=== PATIENT | male | born 1955 | race Caucasian/White ===

== ENCOUNTER 2016-12-04 10:16 | Inpatient (IN) | payer OTHER ==
[2016-11-12 12:52] VITALS: BMI 41.0
--- NOTE | 2016-11-12 13:21 | PAT Medication Instructions ---
Service Date Nov 12, 2016. Current Home Medication List Aspirin (Aspirin Ec), 81 MG PO QAM Cetirizine (Zyrtec), 10 MG PO QAM Fish Oil (Victor-3), 1 CAP PO QAM Fluticasone Propionate (Nasal) (Flonase Allergy Relief), 1 SPRAY JONATHAN QDAY PRN for Nasal Congestion Ibuprofen (Advil), 200-600 MG PO Q4H Magnesium Chloride (Slow-Mag Tab), Unknown Dose PO QAM Multiple Vitamin (Multi Vitamin), 1 TAB PO QAM Potassium Chloride (Klor-Con Ext Rel), Unknown Dose PO QAM Saccharomyces Boulardii (Probiotic), Unknown Dose PO QAM Vitamin E (Vitamin E 100 Iu), Unknown Dose PO EVERY OTHER DAY Medication Instructions For Your Scheduled Surgery - Hold the following medications 2 weeks prior to surgery: Vitamin E (Vitamin E 100 Iu), Unknown Dose PO EVERY OTHER DAY Fish Oil (Victor-3), 1 CAP PO QAM - Hold the following medications 7 days prior to surgery per surgeon's instructions: Ibuprofen (Advil), 200-600 MG PO Q4H - Hold the following medications the morning of surgery: Magnesium Chloride (Slow-Mag Tab), Unknown Dose PO QAM Multiple Vitamin (Multi Vitamin), 1 TAB PO QAM Potassium Chloride (Klor-Con Ext Rel), Unknown Dose PO QAM Saccharomyces Boulardii (Probiotic), Unknown Dose PO QAM Cetirizine (Zyrtec), 10 MG PO QAM - Take the following medications the morning of surgery with a sip of water OTHERWISE NOTHING TO EAT OR DRINK AFTER MIDNIGHT: Aspirin (Aspirin Ec), 81 MG PO QAM Fluticasone Propionate (Nasal) (Flonase Allergy Relief), 1 SPRAY JONATHAN QDAY PRN for Nasal Congestion If you have any questions please call us at [phone] (Jessie Li PA-C) or [phone] or [phone]
[2016-11-12 14:36] LABS: BASO % 0.1 %; BASO ABS # 0.01 K/uL (0-0.2); COMPLETE YES; EOS % 2.1 %; HEMATOCRIT 42.1 % (42-52); IG% 0.1 %; LYMPH % 33.8 %; MEAN CELL VOLUME 88.6 fL (80-100); MEAN CORPUSCULAR HEMOGLOBIN 30.7 pg (25-34); MEAN CORPUSCULAR HGB CONC 34.7 g/dl (32-36); MEAN PLATELET VOLUME 10.6 fL (7.4-10.4); MONO % 6.8 %; NEUT % 57.1 %; PLATELET COUNT 177 K/uL (130-400); RED BLOOD COUNT 4.75 M/uL (4.7-6.1); WHITE BLOOD COUNT 6.81 K/uL (4.8-10.8)
[2016-11-12 14:38] LABS: PARTIAL THROMBOPLASTIN RATIO 1.2; PROTHROMBIN TIME (PATIENT) 10.8 SECONDS (9.0-12.0)
[2016-11-12 14:50] LABS: BUN/CREATININE RATIO 17.9 (10-20); CALCIUM 9.3 mg/dl (8.5-10.1); CREATININE 0.75 mg/dl (0.60-1.40)
[2016-11-12 15:10] LABS: ESTIMATED AVERAGE GLUCOSE 123 mg/dl; HA1C FLAG Normal (Normal)
--- NOTE | 2016-12-03 10:29 | HISTORY & PHYSICAL EXAMINATION ---
DATE OF ADMISSION: 12/04/2016 CHIEF COMPLAINT: Right knee pain. HISTORY OF PRESENT ILLNESS: The patient is a 61-year-old male with known osteoarthritis about his right knee. He has had a history of previous corticosteroid injection. He continues to have ongoing pain and disability with activities of daily living and now desires to proceed with right total knee arthroplasty. PAST MEDICAL HISTORY: Obesity, kidney stones. PAST SURGICAL HISTORY: Lithotripsy, colonoscopy. MEDICATIONS: Ibuprofen daily, baby aspirin daily, vitamins daily. ALLERGIES: No known drug allergies. SOCIAL HISTORY AND REVIEW OF SYSTEMS: Noncontributory. PHYSICAL EXAMINATION: GENERAL: Well-nourished, well-developed, obese male who appears his stated age. HEENT: Normocephalic, atraumatic, extraocular movements intact, oropharynx pink and moist. NECK: Supple without adenopathy. LUNGS: Clear to auscultation bilaterally. HEART: Regular rate and rhythm. ABDOMEN: Soft, nontender, nondistended, obese. EXTREMITIES: The upper extremities are within normal limits. The right knee is neutrally aligned. He complains primarily of medial compartment pain. He has mild crepitus with range of motion. X-RAYS: X-rays were reviewed. He has bone on bone arthritis on the medial compartment. He has mild osteophyte formation about the medial joint line. He has mild to moderate degenerative change about the patellofemoral joint with osteophyte formation as well. ASSESSMENT: Right knee degenerative joint disease. PLAN: Risks versus benefits discussed. Consent was obtained. The patient's primary care physician is Jimmie Crisostomo PA-C, from [facility]. Will proceed with right total knee arthroplasty upon preoperative workup and medical clearance.
[2016-12-04] VITALS (8 sets, daily range): BP systolic 115–152; BP diastolic 71–96; PULSE 78–93; TEMP 36.3–36.8; O2SAT 93–98; Ht 175.3 cm; Wt 127.4 kg
[~2016-12-04] VITALS: Ht 175.3 cm; Wt 127.4 kg
[2016-12-04] MEDS: TRANEXAMIC ACID INJ 1,000 MG in SODIUM CHLORIDE 0.9% 100ML 100 ML IV SCH ×2 (06:30→11:45)
[~2016-12-04 10:16] MED LIST: ACETAMINOPHEN 500 MG TAB PO SCH; ASPI81TA28 PO; BUPIVACAINE 0.5 % 5 MG/1 ML PF 10ML VIAL ONE; BUPIVACAINE/EPINEPHRINE 0.25% 1:200,000 30 ML VIAL ONE; CEFAZOLIN 3000 MG/65 ML D5W 65 ML IV SCH; CETI10TA84 PO; CeleBREX 200 MG CAP PO SCH; DEXAMETHASONE 4 MG TAB PO SCH; DEXAMETHASONE SOD INJ 4 MG/ML VIAL ONE; FAMOTIDINE 20 MG TAB PO SCH; FLUT0.15 NAE; GABAPENTIN 300 MG CAP PO SCH; IBUP-1050 PO; LACTATED RINGER'S 1000ML 1,000 ML IV SCH; LACTATED RINGER'S 1000ML 500 ML IV ONE; MAGNTAB4 PO; METOCLOPRAMIDE HCL 10 MG TAB PO SCH; MULT-1027 PO; OMEG10007 PO; POTA8CAP6 PO; ROPIVACAINE 5MG/ML 30 ML 150 MG, BUPIVACAINE/EPINEPHR 0.5% MPF 30 ML, KETOROLAC TROMETH... INFIL SCH; SACC250C11 PO; VITA100C2 PO
--- NOTE | 2016-12-04 11:07 | History & Physical Bridge Note ---
H&P Re-Evaluation Bridge Note: I have examined the patient, reviewed the History & Physical and in the interval since the performance of the History & Physical I have noted the following changes of clinical significance: No changes noted
[2016-12-04] MEDS ORDERED: FENTANYL CITRATE INJ 50 MCG/1 ML 2 ML VIAL ONE (11:13)
[2016-12-04] MEDS ORDERED: MIDAZOLAM HCL 1 MG/ML 2ML VIAL ONE (11:13)
[2016-12-04] MEDS ORDERED: ORTHO JOINT ANESTHETIC ONE (12:22)
[2016-12-04] MEDS ORDERED: ONDANSETRON INJ 2 MG/ML 2 ML VIAL IV PRN ×2 (12:45→14:00)
[2016-12-04] MEDS ORDERED: EpHEDrine SULFATE INJ 50 MG/ML AMP IV PRN (12:45)
[2016-12-04] MEDS ORDERED: LIDOCAINE HCL 2% 2 ML VIAL (20MG/ML) ONE (12:45)
[2016-12-04] MEDS ORDERED: FENTANYL CITRATE INJ 50 MCG/1 ML 2 ML VIAL IV PRN (12:45)
[2016-12-04] MEDS ORDERED: ATROPINE SULFATE 0.1 MG/ML 5ML SYR IV PRN (12:45)
[2016-12-04] MEDS ORDERED: PROPOFOL IV EMULSION 10 MG/ML 20 ML VIAL IV ONE (12:45)
--- NOTE | 2016-12-04 13:26 | [facility] Post Operative Brief Note ---
Immediate Operative Summary Operative Date Dec 04, 2016. Pre-Operative Diagnosis rIGHT KNEE DEGENERATIVE JOINT DISEASE Post-Operative Diagnosis Same as preoperative diagnosis Procedure(s) Performed Right total knee arthroplasty Surgeon Dr Beth Title Checker Surgeon(s) Jose Townsend PA-C Estimated Blood Loss 20cc Disposition Recovery Room / PACU
--- NOTE | 2016-12-04 13:28 | [facility] Post Operative Brief Note ---
Immediate Operative Summary Operative Date Dec 04, 2016. Pre-Operative Diagnosis rIGHT KNEE DEGENERATIVE JOINT DISEASE Post-Operative Diagnosis Same as preoperative diagnosis Procedure(s) Performed Right total knee arthroplasty Surgeon Dr Beth Bulk Plant Manager Surgeon(s) Jose Townsend PA-C Estimated Blood Loss 20cc Findings severe oa Specimens oa Disposition Recovery Room / PACU
[2016-12-04] MEDS ORDERED: BACITRACIN 50000 UNIT VIAL IR ONE (13:51)
[2016-12-04] MEDS ORDERED: POVIDONE-IODINE OP SOLN 30 ML BTL TOP ONE (13:51)
[2016-12-04] MEDS ORDERED: BISACODYL 10 MG SUPP PR PRN (14:00)
[2016-12-04] MEDS ORDERED: ALUMINUM/MAGNESIUM/SIMETH (MAALOX MAX) 30 ML UDC PO PRN (14:00)
[2016-12-04] MEDS ORDERED: FLUTICASONE PROPIONATE NA SPR 16 GM BTL NAE PRN (14:00)
[2016-12-04] MEDS ORDERED: MoRPHine SULFATE 2 MG/ML CARP IV PRN (14:00)
[2016-12-04] MEDS ORDERED: OXYCODONE HCL IR 5 MG TAB (IMMEDIATE RELEASE) PO PRN (14:00)
[2016-12-04] MEDS ORDERED: DiphenhydrAMINE HCL 50 MG/ML VIAL IV PRN (14:00)
[2016-12-04] MEDS ORDERED: MAGNESIUM HYDROXIDE SUSP 30 ML UDC PO PRN (14:00)
[2016-12-04] MEDS ORDERED: ZOLPIDEM TARTRATE 5 MG TAB PO PRN (14:00)
[2016-12-04] MEDS ORDERED: MoRPHine SULFATE 10 MG/ML CARP/VIAL IV PRN (14:30)
[2016-12-04] MEDS ORDERED: MoRPHine SULFATE 4 MG/ML 1 ML CARP\\VIAL IV PRN (14:30)
--- NOTE | 2016-12-04 14:44 | DIAGNOSTIC IMAGING REPORT ---
RIGHT KNEE 1 OR 2 VIEWS ROUTINE CLINICAL HISTORY: AP/LATERAL IN PACU RIGHT KNEE Right pain COMPARISON: None. DISCUSSION: Postoperative changes consistent with a total right knee replacement. Good contact between prosthetic and underlying bone. Surgical drains in position. Expected soft tissue postoperative change. IMPRESSION: Postoperative total right knee replacement Electronically signed by: Gregorio Blue M.D. 12/04/2016 2:43 PM Dictated Date/Time: 12/04/2016 2:42 PM
--- NOTE | 2016-12-04 14:45 | OPERATIVE REPORT ---
DATE OF OPERATION: 12/04/2016 PREOPERATIVE DIAGNOSIS: Osteoarthritis right knee. POSTOPERATIVE DIAGNOSIS: Osteoarthritis right knee. PROCEDURE: Right total knee arthroplasty. SURGEON: Dr. Beth. HOME COMPANION: Jose Townsend PA-C. ANESTHESIA: Spinal. COMPLICATIONS: None. OPERATION AND FINDINGS: Following induction of spinal anesthesia, the patient's right leg was prepped and draped in the usual sterile manner. Limb was exsanguinated with an Esmarch bandage and tourniquet was inflated to 350 mmHg. A longitudinal incision was made anteriorly. Subcutaneous tissue was sharply dissected. Electrocautery was used for hemostasis. Prepatellar bursa was incised and median parapatellar incision was performed. Patella was everted and the knee was flexed. Fat pad was removed to aid in visualization and the anterior and posterior cruciate ligaments were removed. The medial face of the tibia was cleared of soft tissue first with a Bovie and a Moon elevator. This tissue was retracted posteriorly using a blunt Hohmann. A Calderon retractor was used to expose the synovium above on the anterior aspect of the femur and this was removed down to bone. The PSI guide was placed on the distal femur and two pins were placed anteriorly and kept in position and two additional pins were placed distally and removed. The distal femoral cutting block was placed in position and the distal femoral cut was used in the +0 setting. Next, the cutting block was removed and the femoral size 4 block was placed in the distal end of the femur. Care was taken to ensure appropriate external rotation and feeler gauge was used to ensure no notching would occur. The femoral block was centered on the distal femur and in the medial and lateral direction and was fixed using two bone screws. The gold pins were then removed. The oscillating saw was used to create the bone cuts and the distal femoral cutting block was removed and the reciprocating saw was used to further trim the femoral cuts as well as a deep in the area for the trochlear groove. Next, posterior condyle remnants were removed. Following this, a meniscal clamp and knife were utilized to remove the anterior portion of both medial and lateral meniscus. The proximal tibia PSI guide was placed into position and the proximal tibial cutting guide was screwed into position. The extra medullary alignment guide was utilized to ensure appropriate alignment. The proximal tibia was cut and the proximal tibial cutting block was removed and this bone fragment was removed. The appropriate guide was used to perform the notch cut on the distal femur and a lamina camp coordinator and a cochlear knife were utilized to finish both medial and lateral meniscectomies to remove any remnants of the posterior or anterior cruciate ligaments. Following this, the distal femoral component was impacted into position and blunt Erin was used to sublux the tibia anteriorly. The proximal tibia was sized and a size 4 tibial tray was chosen as the size to be used. This was put into position and appropriate external rotation and a double check with extramedullary alignment guide was performed. The canal for the tibial stem was prepared first with a 17 mm drill and then the punch and a mallet and the trial tibial poly was placed. A poly 16 was chosen the size to be used. It was brought to extension and the patella was prepared with the patellar reamer. A patella 36 component was chosen the size to be used. The trial component was placed and knee was taken through a full range of motion and there was found to be no lateral subluxation of the tibia. No lateral release was required. The trials were all removed. The final components were obtained and assembled. Cement was mixed. The knee was thoroughly irrigated and the ortho mix was injected about the knee joint. The final components were cemented into position. After thoroughly suctioning and drying the bone ends, all excess cement was removed. The knee was held in extension while the cement hardened. The wound was irrigated and closed over a Hemovac drain. #1 Vicryl was used to close the extensor mechanism. Subcutaneous tissues closed using 0 Dexon. Skin was closed with anahi. Sterile dressing of Adaptic, 4 x 4's, sterile Webril, and Iván was applied. The patient tolerated the procedure well. Due to the complex nature of the procedure, the entire surgery was performed with the operational assistance of Jose Townsend PA-C. The compounding assistant, under direct supervision, was involved in the actual performance of all aspects of the surgical procedure including hemostasis, tissue retraction and incision, instrument management, patient positioning, and wound closure. I attest to the content of the Intraoperative Record and any orders documented therein. Any exceptions are noted below. JUANY
--- NOTE | 2016-12-04 15:05 | Anesthesiology Progress Note ---
Anesthesia Post Op Note Date & Time Dec 04, 2016 at 15:04 Vital Signs Pain Intensity: 0 Vital Signs Past 12 Hours Date Time Temp Pulse Resp B/P Pulse Ox O2 Delivery O2 Flow Rate FiO2 12/04/16 14:50 88 16 12/04/16 14:50 87 16 92 12/04/16 14:49 36.3 12/04/16 14:48 116/69 12/04/16 14:45 88 16 92 12/04/16 14:45 88 16 12/04/16 14:43 108/65 12/04/16 14:40 90 15 95 12/04/16 14:40 90 15 12/04/16 14:39 89 16 95 12/04/16 14:39 90 16 12/04/16 14:38 123/71 12/04/16 14:34 90 16 12/04/16 14:34 89 16 97 12/04/16 14:33 109/67 12/04/16 14:29 90 14 12/04/16 14:29 89 14 97 12/04/16 14:28 105/71 12/04/16 14:24 90 27 98 12/04/16 14:24 90 27 12/04/16 14:23 112/64 12/04/16 14:19 93 14 12/04/16 14:19 93 14 97 12/04/16 14:18 107/72 12/04/16 14:14 93 19 12/04/16 14:14 94 19 98 12/04/16 14:13 96/57 12/04/16 14:09 92 14 99 12/04/16 14:09 92 14 12/04/16 14:08 117/69 12/04/16 14:04 94 21 100 12/04/16 14:04 93 21 12/04/16 14:03 113/66 12/04/16 13:59 94 18 100 12/04/16 13:59 94 18 12/04/16 13:58 114/66 12/04/16 13:54 94 18 99 12/04/16 13:54 36.4 97 16 99/53 98 Mask 10 12/04/16 13:54 94 18 12/04/16 10:38 36.5 78 18 134/96 Room Air 96 Notes Mental Status: alert / awake / arousable, participated in evaluation Pt Amnestic to Procedure: Yes Nausea / Vomiting: adequately controlled Pain: adequately controlled Airway Patency, RR, SpO2: stable & adequate BP & HR: stable & adequate Hydration State: stable & adequate Neuraxial Anesthesia: was administered, sensory block is resolving Anesthetic Complications: no major complications apparent
[2016-12-04] MEDS: D5W AND 1/2NSS + 20MEQ KCL 1,000 ML IV SCH (16:48)
[2016-12-04] MEDS: FERROUS GLUCONATE 324 MG TAB PO SCH (18:06)
[2016-12-04] MEDS: KETOROLAC TROMETHAMINE 30 MG/ML VIAL IV. SCH ×2 (18:07→23:55)
[2016-12-04] MEDS: CEFAZOLIN IV 2,000 MG in DEXTROSE 5% 50ML 50 ML IV SCH (19:47)
[2016-12-04] MEDS: DOCUSATE SODIUM 100 MG CAP PO SCH (21:12)
[2016-12-04] MEDS: OXYCODONE HCL 10 MG TABCR (OXYCONTIN) PO SCH (21:12)
[2016-12-04] MEDS: SENNA 8.6 MG TAB PO SCH (21:13)
[2016-12-04] MEDS: ASPIRIN 81 MG ECTAB PO SCH (21:13)
[2016-12-04] MEDS: ACETAMINOPHEN 500 MG TAB PO SCH (21:14)
[2016-12-05] VITALS (8 sets, daily range): BP systolic 104–142; BP diastolic 62–74; PULSE 62–84; TEMP 36.3–36.8; O2SAT 97–98
[2016-12-05] MEDS: D5W AND 1/2NSS + 20MEQ KCL 1,000 ML IV SCH (03:02)
[2016-12-05] MEDS: ACETAMINOPHEN 500 MG TAB PO SCH ×3 (05:42→20:59)
[2016-12-05 05:43] LABS: HEMATOCRIT 35.3 % (42-52); MEAN CELL VOLUME 88.7 fL (80-100); MEAN CORPUSCULAR HEMOGLOBIN 30.4 pg (25-34); MEAN CORPUSCULAR HGB CONC 34.3 g/dl (32-36); MEAN PLATELET VOLUME 10.2 fL (7.4-10.4); PLATELET COUNT 171 K/uL (130-400); RED BLOOD COUNT 3.98 M/uL (4.7-6.1); WHITE BLOOD COUNT 13.33 K/uL (4.8-10.8)
[2016-12-05] MEDS: KETOROLAC TROMETHAMINE 30 MG/ML VIAL IV. SCH ×2 (05:43→11:56)
[2016-12-05] MEDS: CEFAZOLIN IV 2,000 MG in DEXTROSE 5% 50ML 50 ML IV SCH (05:43)
[2016-12-05 06:14] LABS: BUN/CREATININE RATIO 18.9 (10-20); CALCIUM 8.3 mg/dl (8.5-10.1); CREATININE 0.83 mg/dl (0.60-1.40); POTASSIUM 4.2 mmol/L (3.5-5.1)
--- NOTE | 2016-12-05 07:41 | Orthopedic Progress Note ---
Orthopedic Progress Note Date of Service Dec 05, 2016. Subjective Post OP Day: 1 Reports: feeling well Objective N/V intact, dressing C/D/I (Hemovac in place), toes mobile Date Time Temp Pulse Resp B/P Pulse Ox O2 Delivery O2 Flow Rate FiO2 12/05/16 07:37 97 Room Air 12/05/16 03:40 36.6 74 16 104/68 97 Room Air 12/04/16 23:50 Room Air 12/04/16 23:03 36.7 93 16 146/89 94 Room Air 12/04/16 19:30 93 Room Air 12/04/16 18:30 36.8 89 18 124/83 96 Nasal Cannula 2.0 12/04/16 17:29 36.4 83 18 152/91 98 Nasal Cannula 2.0 12/04/16 16:30 36.6 78 18 147/89 97 Nasal Cannula 2.0 12/04/16 16:00 36.3 80 18 144/78 97 Nasal Cannula 2.0 12/04/16 15:30 96 Nasal Cannula 2.0 12/04/16 15:30 Nasal Cannula 2.0 12/04/16 15:30 36.7 83 18 115/71 96 Nasal Cannula 2.0 12/04/16 15:11 86 17 94 12/04/16 15:11 86 17 12/04/16 15:08 101/71 12/04/16 15:06 92 18 12/04/16 15:06 93 18 96 12/04/16 15:03 123/72 12/04/16 15:01 91 14 96 12/04/16 15:01 90 14 12/04/16 14:58 113/70 12/04/16 14:56 88 13 97 12/04/16 14:56 87 13 12/04/16 14:53 115/75 12/04/16 14:51 94 16 90 12/04/16 14:51 93 16 12/04/16 14:50 88 16 12/04/16 14:50 87 16 92 12/04/16 14:49 36.3 12/04/16 14:48 116/69 12/04/16 14:45 88 16 92 12/04/16 14:45 88 16 12/04/16 14:43 108/65 12/04/16 14:40 90 15 95 12/04/16 14:40 90 15 12/04/16 14:39 89 16 95 12/04/16 14:39 90 16 12/04/16 14:38 123/71 12/04/16 14:34 90 16 12/04/16 14:34 89 16 97 12/04/16 14:33 109/67 12/04/16 14:29 90 14 12/04/16 14:29 89 14 97 12/04/16 14:28 105/71 12/04/16 14:24 90 27 98 12/04/16 14:24 90 27 12/04/16 14:23 112/64 12/04/16 14:19 93 14 12/04/16 14:19 93 14 97 12/04/16 14:18 107/72 12/04/16 14:14 93 19 12/04/16 14:14 94 19 98 12/04/16 14:13 96/57 12/04/16 14:09 92 14 99 12/04/16 14:09 92 14 12/04/16 14:08 117/69 12/04/16 14:04 94 21 100 12/04/16 14:04 93 21 12/04/16 14:03 113/66 12/04/16 13:59 94 18 100 12/04/16 13:59 94 18 12/04/16 13:58 114/66 12/04/16 13:54 94 18 99 12/04/16 13:54 36.4 97 16 99/53 98 Mask 10 12/04/16 13:54 94 18 12/04/16 10:38 36.5 78 18 134/96 Room Air 96 Laboratory Results 24 Hours: Test 12/05/16 05:35 Hematocrit 35.3 % Hemoglobin 12.1 g/dL Assessment & Plan Assessment: 61 yo male stable POD #1 s/p right TKA Plan: 1. Med management 2. DVT prophylaxis- ASA, TEDs, SCDs 3. PT/OT 4. D/C planning- home w/ HH
--- NOTE | 2016-12-05 07:43 | Discharge Instructions ---
Discharge Instructions Admission Reason for Admission: Right Knee Osteoarthritis Discharge Discharge Diagnosis / Problem: Right knee arthritis Discharge Goals Goal(s): Decrease discomfort, Improve function Activity Recommendations Activity Limitations: as noted below Weightbearing Status: Right weightbearing (as tolerated) . Instructions / Follow-Up Instructions / Follow-Up ACTIVITY RECOMMENDATIONS: SELF CARE INSTRUCTIONS AFTER TOTAL KNEE REPLACEMENT A. You may need to continue a physical therapy program after discharge from the hospital. There are several options available to you. Your doctor will assist you in selecting the best one for you. 1. An out-patient facility 2 to 3 times a week for therapy or home therapy. 2. Continue working on all exercises taught to you in the hospital. Your goals should be to increase bending of your knee to 90 degrees and beyond and to fully straighten your knee. B. You may progress at your own pace from walking with a walker or crutches to a cane; then to no assistive devices. C. Make walking a part of your daily routine. Be up as much as comfortable with rest periods throughout the day. Rest with leg elevation is very important. Use the ice wrap frequently for the first 3-4 weeks. D. There are no restrictions on activities. You may ride in a car, shop, participate in livestock trucker and all social activities. E. Wear the long elastic stockings (TIO hose) 20 hours a day for 2 weeks after surgery. They can be removed several times a day for laundering and for a bath. F. You may shower, no tub baths until cleared by your doctor. SPECIAL CARE INSTRUCTIONS: VERY IMPORTANT TO READ AND REVIEW A. There are a few signs you need to watch for after you are home. Call [facility] if you notice any of the followin. Increased severe knee pain. Some pain is expected especially when you exercise. 2. Increased swelling in your leg or knee; pain or swelling of the calf muscle in either lower leg. 3. Any fluid drainage from the incision. 4. Shortness of breath or chest pain. B. Please call [facility] at if you have any concerns or questions about your operation or recovery. The doctor or his nurse will return your call promptly. C. You must take antibiotics before dental work, bladder, bowel or other surgery. Your doctor will provide you with a permanent care to carry describing this precaution. IMPORTANT: * REMEMBER TO TAKE ASPIRIN, 81 MG, TWICE DAILY FOR 4 WEEKS UNLESS OTHERWISE DIRECTED. THIS IS YOUR BLOOD THINNER. * HIGH RISK PATIENTS MAY BE PRESCRIBED A STRONGER BLOOD THINNER. THIS WILL BE PROVIDED AT DISCHARGE. * CALL IF INCREASED PAIN, REDNESS, DRAINAGE OR FEVER GREATER THAT 101. * WEAR TIO HOSE 20 HOURS PER DAY FOR 2 WEEKS. Silverlon- This is a large adhesive bandage that contains silver ions. This helps your incision heal by fighting off bacteria and protecting it from the outside environment. You are permitted to shower with this dressing. This will remain on your incision for 7 days and then should be removed. Some visible blood or drainage through the dressing window is normal. If there is significant drainage or leaking noted before the 7 days notify your doctor's office immediately. Once removed, keep incision clean and dry. If there is any drainage or redness noted, please call your surgeon. FOLLOW UP VISIT: If appointment is not already scheduled: Please call [facility] to make a follow-up appointment for 2 weeks after your surgery at . Current Hospital Diet Patient's current hospital diet: Regular Diet Discharge Diet Recommended Diet: Regular Diet Procedures Procedures Performed: Right total knee arthroplasty Pending Studies Studies pending at discharge: no Laboratory Results Hemoglobin A1c Test 11/12/16 13:26 Range/Units Estimated Average Glucose 123 mg/dl Hemoglobin A1c 5.9 H 4.5-5.6 % Medical Emergencies . Who to Call and When: Medical Emergencies: If at any time you feel your situation is an emergency, please call 911 immediately. . Non-Emergent Contact Non-Emergency issues call your: Surgeon Call Non-Emergent contact if: temperature is above 101.5, your pain is not controlled, wound has increased drainage, wound has increased redness . "Provider Documentation" section prepared by Philippe Khan PA-C. VTE Core Measure Inpt VTE Proph given/why not?: Other Anticoagulation (ASA 81mg bid), T.E.D. Stockings, SCD's
--- NOTE | 2016-12-05 08:01 | Anesthesiology Progress Note ---
Anesthesia Post Op Note Date & Time Dec 05, 2016 at 07:59 Vital Signs Vital Signs Past 12 Hours Date Time Temp Pulse Resp B/P Pulse Ox O2 Delivery O2 Flow Rate FiO2 12/05/16 07:57 36.6 63 16 119/62 97 Room Air 12/05/16 07:37 97 Room Air 12/05/16 03:40 36.6 74 16 104/68 97 Room Air 12/04/16 23:50 Room Air 12/04/16 23:03 36.7 93 16 146/89 94 Room Air Notes Mental Status: alert / awake / arousable, participated in evaluation Pt Amnestic to Procedure: Yes Nausea / Vomiting: adequately controlled Pain: adequately controlled Airway Patency, RR, SpO2: stable & adequate BP & HR: stable & adequate Hydration State: stable & adequate Anesthetic Complications: no major complications apparent
[2016-12-05] MEDS: FERROUS GLUCONATE 324 MG TAB PO SCH ×3 (08:55→17:08)
[2016-12-05] MEDS: ASPIRIN 81 MG ECTAB PO SCH ×2 (08:56→21:00)
[2016-12-05] MEDS: MULTIVITAMIN TAB PO SCH (08:56)
[2016-12-05] MEDS: DOCUSATE SODIUM 100 MG CAP PO SCH ×2 (08:56→21:00)
[2016-12-05] MEDS: CETIRIZINE HCL 10 MG TAB PO SCH (08:56)
[2016-12-05] MEDS: PANTOprazole SOD 40 MG TAB PO SCH (08:56)
[2016-12-05] MEDS: OXYCODONE HCL 10 MG TABCR (OXYCONTIN) PO SCH ×2 (08:56→20:58)
[2016-12-05] MEDS: CeleBREX 200 MG CAP PO SCH (21:00)
[2016-12-05] MEDS: SENNA 8.6 MG TAB PO SCH (21:01)
[2016-12-06] MEDS: ACETAMINOPHEN 500 MG TAB PO SCH (05:31)
[2016-12-06 06:56] VITALS: BP 114/73; PULSE 72; TEMP 36.4; O2SAT 99
[2016-12-06] MEDS: FERROUS GLUCONATE 324 MG TAB PO SCH (08:05)
[2016-12-06] MEDS: ASPIRIN 81 MG ECTAB PO SCH (08:05)
[2016-12-06] MEDS: CeleBREX 200 MG CAP PO SCH (08:05)
[2016-12-06] MEDS: MULTIVITAMIN TAB PO SCH (08:05)
[2016-12-06] MEDS: OXYCODONE HCL 10 MG TABCR (OXYCONTIN) PO SCH (08:05)
[2016-12-06] MEDS: DOCUSATE SODIUM 100 MG CAP PO SCH (08:05)
[2016-12-06] MEDS: PANTOprazole SOD 40 MG TAB PO SCH (08:05)
[2016-12-06] MEDS: CETIRIZINE HCL 10 MG TAB PO SCH (08:05)
--- NOTE | 2016-12-06 08:10 | Orthopedic Progress Note ---
Orthopedic Progress Note Date of Service Dec 06, 2016. Subjective Post OP Day: 2 Reports: feeling well, Denies: SOB, calf pain, chest pain, light headedness, nausea / vomiting Objective calves soft nontender, N/V intact, incision C/D/I, A&O x3, toes mobile Date Time Temp Pulse Resp B/P Pulse Ox O2 Delivery O2 Flow Rate FiO2 12/06/16 06:56 36.4 72 16 114/73 99 Room Air 12/06/16 00:29 Room Air 12/05/16 23:51 36.5 75 14 111/68 98 Room Air 12/05/16 19:15 Room Air 12/05/16 16:11 36.3 73 18 135/74 97 Room Air 12/05/16 12:06 36.8 84 16 142/62 97 Room Air 12/05/16 08:20 97 Room Air Assessment & Plan Assessment: 61 yo male stable POD #2 s/p right TKA Plan: 1. Med management 2. DVT prophylaxis- ASA, TEDs, SCDs 3. PT/OT 4. D/C planning- home w/ HH, DC HOME TODAY Inhouse Planning Pain Management: Celebrex, Oxycontin, PO Tylenol, Oxy IR DVT Prophylaxis: TEDs, SCDs, ASA Discharge Planning Discharge Planning: home with home health
[2016-12-06] MEDS ORDERED: CLB200 PO (09:52)
[2016-12-06] MEDS ORDERED: OXYSR10 PO (09:52)
[2016-12-06] MEDS ORDERED: ASPI81TA28 PO (09:52)
[2016-12-06] MEDS ORDERED: RXC5 PO (09:52)
[2016-12-06] MEDS ORDERED: ACET-1138 PO (09:52)
[2016-12-06] MEDS ORDERED: ONDA8TAB6 PO (09:52)
[2016-12-06 10:26] VITALS: BP 114/73; PULSE 72; TEMP 36.4; O2SAT 99
[2016-12-06 11:15] VITALS: BP 165/87; PULSE 61; TEMP 36.7; O2SAT 98
--- NOTE | 2016-12-11 19:21 | DISCHARGE SUMMARY ---
DISCHARGE DIAGNOSIS: Degenerative joint disease, right knee. SECONDARY DIAGNOSES: Obesity, renal calculi. CONSULTS: None. COMPLICATIONS: None. PROCEDURES: Right total knee arthroplasty performed by Dr. Beth on 12/04/2016. BRIEF HISTORY: As dictated in history and physical. HOSPITAL SUMMARY: The patient was admitted on the above date and had the above-noted surgery performed which he tolerated well. On the first postoperative day, patient was feeling well. Neurovascularly intact. Dressings clean, dry and intact. Toes were mobile. Vital signs were stable. He was afebrile. Hemoglobin was 12.1. He was started on physical therapy protocol and continued on DVT prophylaxis and pain management. By his second postoperative day, he was feeling well and had no complaints. Calves were soft and nontender, neurovascularly intact. Incision was clean, dry and intact. Toes were mobile. Vital signs were stable and he was afebrile. He was progressing with his physical therapy and remaining stable and it was felt he could be discharged to home with home health services. For further review, please see chart. LAB AND X-RAY DATA: As per chart. DISCHARGE INSTRUCTIONS: The patient was discharged to home in satisfactory condition on 12/06/2016 in stable condition. DIET: Regular. ACTIVITY: Weightbearing as tolerated right lower extremity. Follow TKA instruction sheets and special care instructions as noted. Follow up with Dr. Beth in 2 weeks. The patient to call for appointment if one has not been made for you. DISCHARGE MEDICATIONS: Acetaminophen 1000 mg p.o. q. 8 hours, Celebrex 200 mg p.o. b.i.d., Zofran 8 mg p.o. q. 8 hours p.r.n., OxyContin 10 mg p.o. q. 12 hours, oxycodone 5-10 mg p.o. q. 4 hours p.r.n., resume taking Zyrtec 10 mg p.o. q.a.m., fish oil 1 cap p.o. q.a.m., Flonase nasal spray 1 spray nasally daily p.r.n., Slow-Mag p.o. q.a.m., multivitamin 1 tab p.o. q.a.m., potassium chloride strength unknown p.o. q.a.m., probiotic p.o. q.a.m., aspirin 81 mg p.o. b.i.d. for 30 days and after 30 days resume once daily dosing, stop taking ibuprofen.
[2017-06-10] MEDS ORDERED: CYAN100020 PO (11:54)
[2017-06-10] MEDS ORDERED: SACC250C11 PO (11:54)
[2017-06-10] MEDS ORDERED: IBUP-1050 PO (11:54)
[2017-06-10] MEDS ORDERED: ASPI1TAB2 PO (11:54)
[2017-06-10] MEDS ORDERED: [UNRECOGNIZED DRUG - OTHER] PO (11:54)
[2017-06-10] MEDS ORDERED: VTMD1000 PO (11:54)
[2017-06-10] MEDS ORDERED: [UNRECOGNIZED DRUG - CODE] PO (11:54)
== END 2016-12-06 12:50 | disposition home health service (06) | DRG 470 ==
LOC: ENRESERVTM → ENRESERVDT → C.ACU 10:16 → C.3E 11:00 → UNDOADMIN 14:03
PROC: 0SRC0J9 Replacement of Right Knee Joint with Synthetic Substitute, Cemented, Open Approach (ICD-10-PCS; principal; 2016-12-04 12:30)
DX: M17.11 Unilateral primary osteoarthritis, right knee (principal); Z68.41 Body mass index [BMI] 40.0-44.9, adult; Z79.82 Long term (current) use of aspirin; E66.9 Obesity, unspecified

== ENCOUNTER 2017-07-09 07:32 | Inpatient (IN) | payer OTHER ==
[2017-06-10 11:54] VITALS: BMI 41.0
--- NOTE | 2017-06-10 12:23 | PAT Medication Instructions ---
Service Date Jun 10, 2017. Current Home Medication List Aspirin (Juliette Aspirin Ec Low Dose), 1 TAB PO QAM PRN for Pain Cetirizine (Zyrtec), 10 MG PO QAM Cholecalciferol (Vitamin D3), 1 TAB PO QAM Cyanocobalamin (Vitamin B12), 1 TAB PO QAM Fluticasone Propionate (Nasal) (Flonase Allergy Relief), 1 SPRAY JONATHAN QDAY PRN for Nasal Congestion Ibuprofen (Advil), 200-600 MG PO Q4H PRN for Pain Magnesium Chloride (Slow-Mag Tab), Unknown Dose PO QAM Multiple Vitamin (Multi Vitamin), 1 TAB PO QAM Nutritional Supplements (Silica), 1 CAP PO QM Potassium Chloride (Klor-Con Ext Rel), Unknown Dose PO QAM Saccharomyces Boulardii (Probiotic), 1 CAP PO QAM [Zymectrin], 1 CAP PO QAM Medication Instructions For Your Scheduled Surgery - Hold the following medications per surgeon's instructions: Ibuprofen (Advil), 200-600 MG PO Q4H PRN for Pain - Hold the following medications the morning of surgery: Magnesium Chloride (Slow-Mag Tab), Unknown Dose PO QAM Cetirizine (Zyrtec), 10 MG PO QAM Cholecalciferol (Vitamin D3), 1 TAB PO QAM Cyanocobalamin (Vitamin B12), 1 TAB PO QAM Multiple Vitamin (Multi Vitamin), 1 TAB PO QAM Nutritional Supplements (Silica), 1 CAP PO QM Potassium Chloride (Klor-Con Ext Rel), Unknown Dose PO QAM Saccharomyces Boulardii (Probiotic), 1 CAP PO QAM - Take the following medications the morning of surgery with a sip of water OTHERWISE NOTHING TO EAT OR DRINK AFTER MIDNIGHT: Aspirin (Juliette Aspirin Ec Low Dose), 1 TAB PO QAM PRN for Pain Fluticasone Propionate (Nasal) (Flonase Allergy Relief), 1 SPRAY JONATHAN QDAY PRN for Nasal Congestion If you have any questions please call us at [phone] or [phone] or [phone]
[2017-06-10 13:08] LABS: BASO % 0.4 %; BASO ABS # 0.02 K/uL (0-0.2); COMPLETE YES; EOS % 2.5 %; HEMATOCRIT 40.3 % (42-52); IG% 0.4 %; LYMPH % 34.8 %; LYMPH ABS # 1.66 K/uL (1.2-3.4); MEAN CORPUSCULAR HEMOGLOBIN 30.1 pg (25-34); MEAN CORPUSCULAR HGB CONC 34.2 g/dl (32-36); MEAN PLATELET VOLUME 10.5 fL (7.4-10.4); MONO % 8.8 %; NEUT % 53.1 %; PLATELET COUNT 180 K/uL (130-400); RED BLOOD COUNT 4.58 M/uL (4.7-6.1); WHITE BLOOD COUNT 4.77 K/uL (4.8-10.8)
[2017-06-10 13:18] LABS: CALCIUM 8.9 mg/dl (8.5-10.1); CREATININE 0.71 mg/dl (0.60-1.40); POTASSIUM 4.1 mmol/L (3.5-5.1)
[2017-06-10 13:24] LABS: PARTIAL THROMBOPLASTIN RATIO 1.1; PROTHROMBIN TIME (PATIENT) 10.8 SECONDS (9.0-12.0)
[2017-06-10 13:28] LABS: ESTIMATED AVERAGE GLUCOSE 123 mg/dl; HA1C FLAG Normal (Normal); URINE APPEARANCE CLEAR (CLEAR); URINE BILIRUBIN NEG (NEG); URINE COLOR YELLOW; URINE NITRITE NEG (NEG); URINE SPECIFIC GRAVITY 1.012 (1.000-1.030); UROBILINOGEN NEG (NEG); ZZUR CULT IF INDIC CLEAN CATCH NO
[2017-06-10 13:40] LABS: MANUAL MICROSCOPIC REQUIRED? NO; REVIEW REQ? NO
--- NOTE | 2017-07-08 15:56 | HISTORY & PHYSICAL EXAMINATION ---
DATE OF ADMISSION: 07/09/2017 CHIEF COMPLAINT: Left knee pain. HISTORY OF PRESENT ILLNESS: The patient is a 62-year-old male with known osteoarthritis about his left knee. He has had previous corticosteroid as well as viscosupplementation injections without significant relief. He had a previous right total knee arthroplasty approximately 6 months ago with good relief. Due to ongoing pain and disability, he now desires to proceed with left total knee arthroplasty. PAST MEDICAL HISTORY: Kidney stones. PAST SURGICAL HISTORY: Right knee replacement as above. MEDICATIONS: Baby aspirin 81 mg daily, silica daily, multivitamin daily, magnesium supplement, vitamin D, Zyrtec, vitamin B12, potassium, ibuprofen as needed, Tylenol as needed, fish oil, probiotic. ALLERGIES: SEASONAL. SOCIAL HISTORY AND REVIEW OF SYSTEMS: Noncontributory. PHYSICAL EXAMINATION: GENERAL: Well-nourished, well-developed male who appears his stated age. HEENT: Normocephalic, atraumatic, extraocular movements intact, oropharynx pink and moist. NECK: Supple without adenopathy. LUNGS: Clear to auscultation bilaterally. HEART: Regular rate and rhythm. ABDOMEN: Soft, nontender, nondistended, obese. EXTREMITIES: The upper extremity within normal limits. Left knee has a varus alignment. He complains primarily of medial compartment pain. His range of motion is from 0-120 degrees. He has mild crepitus with range of motion. X-RAYS: X-rays were reviewed. He has a varus aligned knee. He has bone on bone arthritis of the medial compartment with osteophyte formation. He also has mild osteophyte formation about the lateral joint line and moderate osteophyte formation about the patellofemoral joint. ASSESSMENT: Left knee degenerative joint disease. PLAN: Risks versus benefits were discussed. Consent was obtained. The patient's primary care physician is Alex Crisostomo PA-C from [place]. Will proceed with left total knee arthroplasty upon preoperative workup and medical clearance.
[~2017-07-09] VITALS: Ht 175.3 cm; Wt 126.9 kg
[2017-07-09] VITALS (8 sets, daily range): BP systolic 109–155; BP diastolic 70–91; PULSE 75–104; TEMP 36.5–37.1; O2SAT 94–97; Ht 175.3 cm; Wt 126.9 kg
[~2017-07-09 07:32] MED LIST changes: +ASPI1TAB2 PO; -ASPI81TA28 PO; -BUPIVACAINE/EPINEPHRINE 0.25% 1:200,000 30 ML VIAL ONE; +CYAN100020 PO; -DEXAMETHASONE SOD INJ 4 MG/ML VIAL ONE; -LACTATED RINGER'S 1000ML 500 ML IV ONE; +LACTATED RINGER'S 1000ML IV SCH; +LACTATED RINGER'S 500 ML IV SCH; +MIDAZOLAM HCL 1 MG/ML 2ML VIAL ONE; -OMEG10007 PO; +ROPIVACAINE 0.5% 5 MG/ML 30 ML VIAL ONE; -VITA100C2 PO; +VTMD1000 PO; +[UNRECOGNIZED DRUG - CODE] PO
[2017-07-09] MEDS ORDERED: POVIDONE-IODINE OP SOLN 30 ML BTL ONE (08:56)
[2017-07-09] MEDS ORDERED: ORTHO JOINT ANESTHETIC ONE (08:56)
[2017-07-09] MEDS ORDERED: BACITRACIN 50000 UNIT VIAL ONE (08:56)
[2017-07-09] MEDS: TRANEXAMIC ACID INJ 1,000 MG in SODIUM CHLORIDE 0.9% 100ML 100 ML IV SCH ×2 (09:12→12:00)
[2017-07-09] MEDS ORDERED: ATROPINE SULFATE 0.1 MG/ML 5ML SYR IV PRN (09:15)
[2017-07-09] MEDS ORDERED: HYDROmorphone INJ 2 MG/ML SYR/VIAL IV PRN (09:15)
[2017-07-09] MEDS ORDERED: EpHEDrine SULFATE INJ 50 MG/ML AMP IV PRN (09:15)
[2017-07-09] MEDS ORDERED: PHENYLEPHRINE 100MCG/ML 5ML SYR IV PRN (09:15)
[2017-07-09] MEDS ORDERED: ONDANSETRON INJ 2 MG/ML 2 ML VIAL IV PRN ×2 (09:15→11:30)
[2017-07-09] MEDS ORDERED: PROPOFOL IV EMULSION 10 MG/ML 20 ML VIAL IV ONE (09:48)
[2017-07-09] MEDS ORDERED: PHENYLEPHRINE 100MCG/ML 5ML SYR ONE (09:48)
[2017-07-09] MEDS ORDERED: FENTANYL CITRATE INJ 50 MCG/1 ML 2 ML VIAL ONE (09:50)
[2017-07-09] MEDS ORDERED: PHENYLEPHRINE HCL INJ 10 MG/ML VIAL ONE (10:51)
--- NOTE | 2017-07-09 10:52 | [facility] Post Operative Brief Note ---
Immediate Operative Summary Operative Date Jul 09, 2017. Pre-Operative Diagnosis Left knee degenerative joint disease Post-Operative Diagnosis same Procedure(s) Performed Left Total Knee Arthroplasty Surgeon Dr. Brady Beth Toolroom Keeper Surgeon(s) Jose Townsend PA-C Estimated Blood Loss 10 ML Findings severe OA Specimens a. left knee bone and tissue Complication(s) None Disposition Recovery Room / PACU
--- NOTE | 2017-07-09 11:22 | OPERATIVE REPORT ---
DATE OF OPERATION: 07/09/2017 PREOPERATIVE DIAGNOSIS: Osteoarthritis, left knee. POSTOPERATIVE DIAGNOSIS: Osteoarthritis, left knee. PROCEDURE: Left total knee arthroplasty. SURGEON: Dr. Beth. HYDRAULIC CORRUGATING MACHINE OPERATOR: ESTHER Stallings ANESTHESIA: Spinal. COMPLICATIONS: None. IMPLANTS USED: Femoral size 5, tibia size 4, tibial poly 16, and patella size 36. OPERATION AND FINDINGS: Following induction of spinal anesthesia, the patient's left leg was prepped and draped in the usual sterile manner. Limb was exsanguinated with an Esmarch bandage and tourniquet was inflated to 350 mmHg. A longitudinal incision was made anteriorly. Subcutaneous tissue was sharply dissected. Electrocautery was used for hemostasis. Prepatellar bursa was incised and median parapatellar incision was performed. Patella was everted and the knee was flexed. Fat pad was removed to aid in visualization and the anterior and posterior cruciate ligaments were removed. The medial face of the tibia was cleared of soft tissue first with a Bovie and a Moon elevator. This tissue was retracted posteriorly using a blunt Hohmann. A Calderon retractor was used to expose the synovium above on the anterior aspect of the femur and this was removed down to bone. The PSI guide was placed on the distal femur and two pins were placed anteriorly and kept in position and two additional pins were placed distally and removed. The distal femoral cutting block was placed in position and the distal femoral cut was used in the +0 setting. Next, the cutting block was removed and the femoral 5 block was placed in the distal end of the femur. Care was taken to ensure appropriate external rotation and feeler gauge was used to ensure no notching would occur. The femoral block was centered on the distal femur and in the medial and lateral direction and was fixed using two bone screws. The gold pins were then removed. The oscillating saw was used to create the bone cuts and the distal femoral cutting block was removed and the reciprocating saw was used to further trim the femoral cuts as well as a deep in the area for the trochlear groove. Next, posterior condyle remnants were removed. Following this, a meniscal clamp and knife were utilized to remove the anterior portion of both medial and lateral meniscus. The proximal tibia PSI guide was placed into position and the proximal tibial cutting guide was screwed into position. The extra medullary alignment guide was utilized to ensure appropriate alignment. The proximal tibia was cut and the proximal tibial cutting block was removed and this bone fragment was removed. The appropriate guide was used to perform the notch cut on the distal femur and a lamina political science instructor and a cochlear knife were utilized to finish both medial and lateral meniscectomies to remove any remnants of the posterior or anterior cruciate ligaments. Following this, the distal femoral component was impacted into position and blunt Erin was used to sublux the tibia anteriorly. The proximal tibia was sized and a 4 tibial tray was chosen as the size to be used. This was put into position and appropriate external rotation and a double check with extramedullary alignment guide was performed. The canal for the tibial stem was prepared first with a 17 mm drill and then the punch and a mallet and the trial tibial poly was placed. A 16 was chosen the size to be used. It was brought to extension and the patella was prepared with the patellar reamer. A 36 component was chosen the size to be used. The trial component was placed and knee was taken through a full range of motion and there was found to be no lateral subluxation of the tibia. No lateral release was required. The trials were all removed. The final components were obtained and assembled. Cement was mixed. The knee was thoroughly irrigated and the ortho mix was injected about the knee joint. The final components were cemented into position. After thoroughly suctioning and drying the bone ends, all excess cement was removed. The knee was held in extension while the cement hardened. The wound was irrigated and closed over a Hemovac drain. #1 Vicryl was used to close the extensor mechanism. Subcutaneous tissues closed using 0 Dexon. Skin was closed with anahi. Sterile dressing of Adaptic, 4 x 4's, sterile Webril, and Iván was applied. The patient tolerated the procedure well. Due to the complex nature of the procedure, the entire surgery was performed with the operational assistance of ESTHER Stallings. The speech language pathology assistant, under direct supervision, was involved in the actual performance of all aspects of the surgical procedure including hemostasis, tissue retraction and incision, instrument management, patient positioning, and wound closure. DISPOSITION: Recovery room stable. I attest to the content of the Intraoperative Record and any orders documented therein. Any exception s are noted below.
[2017-07-09] MEDS ORDERED: MAGNESIUM HYDROXIDE SUSP 30 ML UDC PO PRN (11:30)
[2017-07-09] MEDS ORDERED: BISACODYL 10 MG SUPP PR PRN (11:30)
[2017-07-09] MEDS ORDERED: MoRPHine SULFATE 2 MG/ML CARP IV PRN (11:30)
[2017-07-09] MEDS ORDERED: ALUMINUM/MAGNESIUM/SIMETH (MAALOX MAX) 30 ML UDC PO PRN (11:30)
[2017-07-09] MEDS ORDERED: TAMSULOSIN HCL 0.4 MG CAP PO PRN (11:30)
[2017-07-09] MEDS ORDERED: FLUTICASONE PROPIONATE NA SPR 16 GM BTL NAE PRN (11:30)
[2017-07-09] MEDS ORDERED: MoRPHine SULFATE 4 MG/ML 1 ML CARP\\VIAL IV PRN (11:45)
--- NOTE | 2017-07-09 11:55 | DIAGNOSTIC IMAGING REPORT ---
LEFT KNEE 1 OR 2 VIEWS ROUTINE CLINICAL HISTORY: AP/LATERAL IN PACU LEFT KNEE joint replacement COMPARISON: None. DISCUSSION: Anatomic alignment status post total left knee replacement. Expected soft tissue postoperative change. IMPRESSION: Anatomic alignment status post total joint replacement. The above report was generated using voice recognition software. It may contain grammatical, syntax or spelling errors. Electronically signed by: Gregorio Blue M.D. 07/09/2017 11:53 AM Dictated Date/Time: 07/09/2017 11:53 AM
--- NOTE | 2017-07-09 12:27 | Anesthesiology Progress Note ---
Anesthesia Post Op Note Date & Time Jul 09, 2017 at 12:26 Vital Signs Pain Intensity: 0 Vital Signs Past 12 Hours Date Time Temp Pulse Resp B/P (MAP) Pulse Ox O2 Delivery O2 Flow Rate FiO2 07/09/17 12:20 36.4 91 16 101/72 99 Nasal Cannula 2 07/09/17 12:05 36.4 91 16 116/72 99 Nasal Cannula 2 07/09/17 11:55 91 16 121/69 99 Nasal Cannula 2 07/09/17 11:45 91 16 132/70 100 Oxymask 10 07/09/17 11:35 91 16 105/53 99 Oxymask 10 07/09/17 11:27 36.1 93 16 110/54 97 Oxymask 10 07/09/17 07:55 36.9 85 16 155/91 97 Room Air Notes Mental Status: alert / awake / arousable, participated in evaluation Pt Amnestic to Procedure: Yes Nausea / Vomiting: adequately controlled Pain: adequately controlled Airway Patency, RR, SpO2: stable & adequate BP & HR: stable & adequate Hydration State: stable & adequate Anesthetic Complications: no major complications apparent
[2017-07-09] MEDS: KETOROLAC TROMETHAMINE 30 MG/ML VIAL IV. SCH ×2 (14:13→17:59)
[2017-07-09] MEDS: ACETAMINOPHEN 500 MG TAB PO SCH ×2 (14:13→21:48)
[2017-07-09] MEDS: D5W AND 1/2NSS + 20MEQ KCL 1,000 ML IV SCH (14:20)
[2017-07-09] MEDS: OXYCODONE HCL IR 5 MG TAB (IMMEDIATE RELEASE) PO PRN ×2 (16:06→20:59)
[2017-07-09] MEDS: FERROUS GLUCONATE 324 MG TAB PO SCH (17:54)
[2017-07-09] MEDS: CEFAZOLIN IV 2,000 MG in DEXTROSE 5% 50ML 50 ML IV SCH (17:55)
[2017-07-09] MEDS: OXYCODONE HCL 10 MG TABCR (OXYCONTIN) PO SCH (20:58)
[2017-07-09] MEDS: ASPIRIN 81 MG ECTAB PO SCH (21:00)
[2017-07-09] MEDS: DOCUSATE SODIUM 100 MG CAP PO SCH (21:00)
[2017-07-09] MEDS: SENNA 8.6 MG TAB PO SCH (21:00)
[2017-07-10] MEDS: D5W AND 1/2NSS + 20MEQ KCL 1,000 ML IV SCH (00:39)
[2017-07-10] MEDS: KETOROLAC TROMETHAMINE 30 MG/ML VIAL IV. SCH ×2 (00:47→06:16)
[2017-07-10] MEDS: CEFAZOLIN IV 2,000 MG in DEXTROSE 5% 50ML 50 ML IV SCH (01:43)
[2017-07-10] MEDS: OXYCODONE HCL IR 5 MG TAB (IMMEDIATE RELEASE) PO PRN ×4 (01:47→19:04)
[2017-07-10 03:38] VITALS: BP 106/60; PULSE 90; TEMP 36.5; O2SAT 96
[2017-07-10] MEDS: ACETAMINOPHEN 500 MG TAB PO SCH ×3 (06:16→22:13)
[2017-07-10 06:39] LABS: HEMATOCRIT 35.9 % (42-52); MEAN CELL VOLUME 87.8 fL (80-100); MEAN CORPUSCULAR HEMOGLOBIN 29.6 pg (25-34); MEAN CORPUSCULAR HGB CONC 33.7 g/dl (32-36); MEAN PLATELET VOLUME 10.4 fL (7.4-10.4); PLATELET COUNT 237 K/uL (130-400); RED BLOOD COUNT 4.09 M/uL (4.7-6.1); WHITE BLOOD COUNT 15.39 K/uL (4.8-10.8)
[2017-07-10 07:05] LABS: BUN/CREATININE RATIO 16.1 (10-20); CALCIUM 8.5 mg/dl (8.5-10.1); CREATININE 0.99 mg/dl (0.60-1.40); POTASSIUM 4.3 mmol/L (3.5-5.1)
[2017-07-10 07:08] VITALS: BP 112/72; PULSE 83; TEMP 36.5; O2SAT 95
--- NOTE | 2017-07-10 07:52 | Orthopedic Progress Note ---
Orthopedic Progress Note Date of Service Jul 10, 2017. Subjective Post OP Day: 1 Reports: feeling well Objective N/V intact, dressing C/D/I (Hemovac in place), toes mobile Date Time Temp Pulse Resp B/P (MAP) Pulse Ox O2 Delivery O2 Flow Rate FiO2 07/10/17 07:08 36.5 83 18 112/72 (85) 95 Room Air 07/10/17 03:38 36.5 90 16 106/60 (75) 96 Room Air 07/10/17 00:15 Room Air 07/09/17 22:45 36.8 75 16 109/70 (83) 95 Room Air 07/09/17 15:55 96 Room Air 07/09/17 15:30 37.1 104 18 129/82 (98) 96 Nasal Cannula 2.0 07/09/17 14:44 36.7 92 17 137/89 (105) 96 Nasal Cannula 2.0 07/09/17 13:32 91 16 118/83 (95) 94 Nasal Cannula 2.0 07/09/17 13:11 91 18 124/88 (100) 96 Nasal Cannula 2.0 07/09/17 12:40 Nasal Cannula 2.0 07/09/17 12:40 Nasal Cannula 2.0 07/09/17 12:40 36.5 92 13 130/79 (96) 95 Nasal Cannula 2.0 07/09/17 12:20 36.4 91 16 101/72 99 Nasal Cannula 2 07/09/17 12:05 36.4 91 16 116/72 99 Nasal Cannula 2 07/09/17 11:55 91 16 121/69 99 Nasal Cannula 2 07/09/17 11:45 91 16 132/70 100 Oxymask 10 07/09/17 11:35 91 16 105/53 99 Oxymask 10 07/09/17 11:27 36.1 93 16 110/54 97 Oxymask 10 07/09/17 07:55 36.9 85 16 155/91 97 Room Air Laboratory Results 24 Hours: Test 07/10/17 06:05 Hematocrit 35.9 % Hemoglobin 12.1 g/dL Assessment & Plan Assessment: 62 yo male stable POD #1 s/p left TKA Plan: 1. Med management 2. DVT prophylaxis- ASA, SCDs 3. PT/OT 4. D/C planning- home w/ HH
[2017-07-10] MEDS ORDERED: RXC5 PO (07:53)
[2017-07-10] MEDS ORDERED: OXYSR10 PO (07:53)
--- NOTE | 2017-07-10 08:04 | Anesthesiology Progress Note ---
Anesthesia Post Op Note Date & Time Jul 10, 2017 at 08:03 Vital Signs Pain Intensity: 5.0 Vital Signs Past 12 Hours Date Time Temp Pulse Resp B/P (MAP) Pulse Ox O2 Delivery O2 Flow Rate FiO2 07/10/17 07:59 Room Air 07/10/17 07:08 36.5 83 18 112/72 (85) 95 Room Air 07/10/17 03:38 36.5 90 16 106/60 (75) 96 Room Air 07/10/17 00:15 Room Air 07/09/17 22:45 36.8 75 16 109/70 (83) 95 Room Air Notes Mental Status: alert / awake / arousable, participated in evaluation Pt Amnestic to Procedure: Yes Nausea / Vomiting: adequately controlled Pain: adequately controlled Airway Patency, RR, SpO2: stable & adequate BP & HR: stable & adequate Hydration State: stable & adequate Neuraxial Anesthesia: sensory block resolved Anesthetic Complications: no major complications apparent
[2017-07-10] MEDS: OXYCODONE HCL 10 MG TABCR (OXYCONTIN) PO SCH ×2 (08:42→21:43)
[2017-07-10] MEDS: PANTOprazole SOD 40 MG TAB PO SCH (08:42)
[2017-07-10] MEDS: ASPIRIN 81 MG ECTAB PO SCH ×2 (08:42→22:13)
[2017-07-10] MEDS: FERROUS GLUCONATE 324 MG TAB PO SCH ×3 (08:42→18:28)
[2017-07-10] MEDS: DOCUSATE SODIUM 100 MG CAP PO SCH ×2 (08:42→22:13)
[2017-07-10] MEDS: MULTIVITAMIN TAB PO SCH (08:42)
[2017-07-10] MEDS: CETIRIZINE HCL 10 MG TAB PO SCH (08:43)
[2017-07-10] MEDS: MoRPHine SULFATE 10 MG/ML CARP/VIAL IV PRN ×2 (14:35→20:16)
--- NOTE | 2017-07-10 14:43 | Discharge Instructions ---
Discharge Instructions Date of Service Jul 10, 2017. Admission Reason for Admission: Left Knee Osteoarthritis Discharge Discharge Diagnosis / Problem: Left knee arthritis Discharge Goals Goal(s): Decrease discomfort, Improve function Activity Recommendations Activity Limitations: as noted below Weightbearing Status: Left weightbearing (as tolerated) . Instructions / Follow-Up Instructions / Follow-Up ACTIVITY RECOMMENDATIONS: SELF CARE INSTRUCTIONS AFTER TOTAL KNEE REPLACEMENT A. You may need to continue a physical therapy program after discharge from the hospital. There are several options available to you. Your doctor will assist you in selecting the best one for you. 1. An out-patient facility 2 to 3 times a week for therapy or home therapy. 2. Continue working on all exercises taught to you in the hospital. Your goals should be to increase bending of your knee to 90 degrees and beyond and to fully straighten your knee. B. You may progress at your own pace from walking with a walker or crutches to a cane; then to no assistive devices. C. Make walking a part of your daily routine. Be up as much as comfortable with rest periods throughout the day. Rest with leg elevation is very important. Use the ice wrap frequently for the first 3-4 weeks. D. There are no restrictions on activities. You may ride in a car, shop, participate in station agent and all social activities. E. Wear the long elastic stockings (TIO hose) 20 hours a day for 2 weeks after surgery. They can be removed several times a day for laundering and for a bath. F. You may shower, no tub baths until cleared by your doctor. SPECIAL CARE INSTRUCTIONS: VERY IMPORTANT TO READ AND REVIEW A. There are a few signs you need to watch for after you are home. Call [facility] if you notice any of the followin. Increased severe knee pain. Some pain is expected especially when you exercise. 2. Increased swelling in your leg or knee; pain or swelling of the calf muscle in either lower leg. 3. Any fluid drainage from the incision. 4. Shortness of breath or chest pain. B. Please call [facility] at if you have any concerns or questions about your operation or recovery. The doctor or his nurse will return your call promptly. C. You must take antibiotics before dental work, bladder, bowel or other surgery. Your doctor will provide you with a permanent care to carry describing this precaution. IMPORTANT: * REMEMBER TO TAKE ASPIRIN, 81 MG, TWICE DAILY FOR 4 WEEKS UNLESS OTHERWISE DIRECTED. THIS IS YOUR BLOOD THINNER. * HIGH RISK PATIENTS MAY BE PRESCRIBED A STRONGER BLOOD THINNER. THIS WILL BE PROVIDED AT DISCHARGE. * CALL IF INCREASED PAIN, REDNESS, DRAINAGE OR FEVER GREATER THAT 101. * WEAR TIO HOSE 20 HOURS PER DAY FOR 2 WEEKS. * YOU HAVE A ZIP CLOSURE SYSTEM ON YOUR WOUND INSTEAD OF CHELY. THIS WILL REMAIN ON FOR 14 DAYS. IF BEGINS TO PEEL OFF, PLEASE CALL THE OFFICE. CHANGE YOUR DRESSING DAILY WHILE IT IS STILL DRAINING. ONCE THE DRAINING SUBSIDES OR STOPS, YOU MAY CHANGE THE DRESSING EVERY OTHER DAY. KEEP IT COVERED WITH A DRESSING TO PROTECT THE WOUND AND TO KEEP YOUR CLOTHES FROM CATCHING ON THE ZIP CLOSURE SYSTEM. CALL THE OFFICE IF YOU HAVE INCREASED DRAINAGE, REDNESS OF THE WOUND, OR INCREASED PAIN NOT RELIEVED BY PAIN MEDS. FOLLOW UP VISIT: If appointment is not already scheduled: Please call [facility] to make a follow-up appointment for 2 weeks after your surgery at . Current Hospital Diet Patient's current hospital diet: Regular Diet Discharge Diet Recommended Diet: Regular Diet Procedures Procedures Performed: Left Total Knee Arthroplasty Pending Studies Studies pending at discharge: no Laboratory Results Hemoglobin A1c Test 06/10/17 12:31 Range/Units Estimated Average Glucose 123 mg/dl Hemoglobin A1c 5.9 H 4.5-5.6 % Medical Emergencies . Who to Call and When: Medical Emergencies: If at any time you feel your situation is an emergency, please call 911 immediately. . Non-Emergent Contact Non-Emergency issues call your: Surgeon Call Non-Emergent contact if: temperature is above 101.5, your pain is not controlled, wound has increased drainage, wound has increased redness . "Provider Documentation" section prepared by Philippe Khan PA-C. . VTE Core Measure Inpt VTE Proph given/why not?: Other Anticoagulation (ASA ), T.E.D. Stockings, SCD's [place] Drug Monitoring Program Search Results: patient reviewed within database, no issues identified
[2017-07-10 15:08] VITALS: BP 105/63; PULSE 89; TEMP 36.8; O2SAT 97
[2017-07-10] MEDS ORDERED: SNK PO (16:12)
[2017-07-10] MEDS ORDERED: ASPI1TAB2 PO (16:12)
[2017-07-10] MEDS ORDERED: ACET-24 PO (16:12)
[2017-07-10] MEDS: SENNA 8.6 MG TAB PO SCH (22:13)
[2017-07-10 23:31] VITALS: BP 113/71; PULSE 79; TEMP 36.7; O2SAT 96
[2017-07-11] MEDS: OXYCODONE HCL IR 5 MG TAB (IMMEDIATE RELEASE) PO PRN ×3 (04:18→12:55)
[2017-07-11] MEDS: ACETAMINOPHEN 500 MG TAB PO SCH ×2 (05:43→13:54)
[2017-07-11 06:25] VITALS: BP 125/71; PULSE 74; TEMP 36.7; O2SAT 97
[2017-07-11] MEDS: FERROUS GLUCONATE 324 MG TAB PO SCH ×2 (08:13→12:54)
[2017-07-11] MEDS: OXYCODONE HCL 10 MG TABCR (OXYCONTIN) PO SCH (08:13)
[2017-07-11] MEDS: MULTIVITAMIN TAB PO SCH (08:13)
[2017-07-11] MEDS: DOCUSATE SODIUM 100 MG CAP PO SCH (09:41)
[2017-07-11] MEDS: CETIRIZINE HCL 10 MG TAB PO SCH (09:41)
[2017-07-11] MEDS: ASPIRIN 81 MG ECTAB PO SCH (09:41)
[2017-07-11] MEDS: PANTOprazole SOD 40 MG TAB PO SCH (09:41)
--- NOTE | 2017-07-11 10:47 | Orthopedic Progress Note ---
Orthopedic Progress Note Date of Service Jul 11, 2017. Subjective Post OP Day: 2 Reports: feeling well, Denies: chest pain, SOB, nausea / vomiting, light headedness, calf pain Objective calves soft nontender, N/V intact, dressing C/D/I, A&O x3, toes mobile Date Time Temp Pulse Resp B/P (MAP) Pulse Ox O2 Delivery O2 Flow Rate FiO2 07/11/17 07:30 Room Air 07/11/17 06:25 36.7 74 18 125/71 (89) 97 Room Air 07/11/17 00:30 Room Air 07/10/17 23:31 36.7 79 16 113/71 (85) 96 Room Air 07/10/17 16:30 Room Air 07/10/17 15:08 36.8 89 18 105/63 (77) 97 Room Air Assessment & Plan Assessment: 62 yo male stable POD #2 s/p left TKA Plan: Progressing well Plan for dc to home today Inhouse Planning Pain Management: Oxycontin, Morphine, PO Tylenol, Oxy IR DVT Prophylaxis: TEDs, SCDs, ASA Discharge Planning Discharge Planning: home with home health Pain Management: Oxycontin, PO Tylenol, Oxy IR DVT Prophylaxis: TEDs, ASA Therapy: Physical Therapy
[2017-07-11] MEDS ORDERED: CLB200 PO (10:59)
[2017-07-11] MEDS ORDERED: ONDA8TAB6 PO (10:59)
[2017-07-11 11:19] VITALS: BP 125/71; PULSE 74; TEMP 36.7; O2SAT 97
--- NOTE | 2017-07-12 11:31 | DISCHARGE SUMMARY ---
DISCHARGE DIAGNOSIS: Degenerative joint disease, left knee. SECONDARY DIAGNOSIS: History of renal calculi. CONSULTS: None. COMPLICATIONS: None. PROCEDURE: Left total knee arthroplasty performed by Dr. Beth on 07/09/2017. BRIEF HISTORY: As dictated in history and physical. HOSPITAL SUMMARY: The patient was admitted on the above-noted date and had the above-noted surgery performed which he tolerated well. On the first postoperative day, patient was feeling well and had no complaints. Dressings clean, dry and intact. Neurovascularly intact. Toes were mobile. Vital signs were stable. He was afebrile. Hemoglobin was 12.1 and he was started on physical therapy protocol and continued on DVT prophylaxis and pain management. By his second postoperative day, he was feeling well and had no complaints. Calves were soft and nontender, neurovascularly intact. Dressings clean, dry and intact. Toes were mobile. Vital signs were stable. He was afebrile. He was progressing well with his physical therapy and plans were for discharge to home with home health services. For further review, please see chart. LAB AND X-RAY DATA: As per chart. DISCHARGE INSTRUCTIONS: The patient was discharged to home in satisfactory condition on 07/11/2017. DIET: Regular. ACTIVITY: Follow TKA instruction sheets and special care instructions as noted, weightbearing as tolerated in left lower extremity. Follow up with Dr. Beth in 2 weeks. The patient to call for appointment if one has not been made for you. DISCHARGE MEDICATIONS: Acetaminophen 1000 mg p.o. q. 8 hours for 30 days, Celebrex 200 mg p.o. b.i.d. for 30 days, Zofran 8 mg p.o. t.i.d. p.r.n., OxyContin 10 mg p.o. q. 12 hours, oxycodone 5-10 mg p.o. q. 4-6 hours p.r.n., senna 17.2 mg at bedtime. Resume home meds as listed, aspirin 81 mg p.o. b.i.d. for 30 days; after 30 days, resume once daily dosing. Stop taking ibuprofen.
== END 2017-07-11 15:45 | disposition home health service (06) | DRG 470 ==
LOC: C.ACU 07:32 → C.3E 11:36 → ENRESERV 12:18
PROC: 0SRD0J9 Replacement of Left Knee Joint with Synthetic Substitute, Cemented, Open Approach (ICD-10-PCS; principal; 2017-07-09 09:45)
DX: M17.12 Unilateral primary osteoarthritis, left knee (principal); Z96.651 Presence of right artificial knee joint; Z79.899 Other long term (current) drug therapy; Z79.82 Long term (current) use of aspirin; Z87.442 Personal history of urinary calculi